=== PATIENT | male | born 1985 | race Caucasian/White ===

== ENCOUNTER → 2020-10-06 | Outpatient (CLI) | payer OTHER ==
[~2020-10-06] MED LIST: CETI10TA74 PO; OXYC-325 PO
== END ==
LOC: EDBD → LAB 11:07 → MERGE 11:07 → UNMERGE 11:07
PROVIDERS: ATTEND Surgery
DX: Z01.812 Encounter for preprocedural laboratory examination (principal); K40.90 Unilateral inguinal hernia, without obstruction or gangrene, not specified as recurrent; Z20.828 Contact with and (suspected) exposure to other viral communicable diseases
CPT/HCPCS: U0003

== ENCOUNTER 2020-10-09 08:20 | Day surgery (SDC) | payer OTHER ==
[~2020-10-09] VITALS: Ht 182.9 cm; Wt 123.0 kg
[~2020-10-09 08:20] MED LIST changes: +ACETAMINOPHEN 500 MG TABLET PO SCH; +HYDROmorphone 2 MG/ML VIAL IV PRN; +MORPHINE SULFATE 2 MG/ML VIAL. IV PRN; +ONDANSETRON PF 4 MG/2 ML VIAL. IV PRN; -OXYC-325 PO; +PROCHLORPERAZINE 10 MG/2 ML VIAL. IV PRN; +ceFAZolin SODIUM 3 GM in IV DEXTROSE 5% 100ML 100 ML IV PRN; +fentaNYL PF VIAL 100 MCG/2 ML VIAL IV PRN
[2020-10-09] MEDS ORDERED: MIDAZOLAM HCL/PF 2 MG/2 ML VIAL. ONE (08:33)
[2020-10-09] MEDS ORDERED: fentaNYL PF VIAL 250 MCG/5 ML VIAL ONE (08:33)
[2020-10-09] MEDS ORDERED: PROPOFOL 10 MG/ML (20ML) VIAL. IV ONE (08:33)
[2020-10-09] MEDS ORDERED: LIDOCAINE 2% PF 5 ML VIAL. ONE (08:34)
[2020-10-09] MEDS ORDERED: ROCURONIUM 50 MG/5 ML VIAL. ONE ×2 (08:34→10:09)
[2020-10-09] MEDS: IV RINGERS,LACTATED 1000ML 1,000 ML IV SCH ×2 (08:55→11:50)
[2020-10-09] MEDS ORDERED: MINERAL OIL for SURGERY 10 ML VIAL. MC ONE (09:17)
[2020-10-09] MEDS ORDERED: BUPIVACAINE-EPI 0.25% 30 ML VIAL KIT. ONE (09:17)
[2020-10-09] MEDS ORDERED: SUCCINYLCHOLINE 200 MG/10 ML VIAL. ONE (09:48)
[2020-10-09] MEDS ORDERED: DEXAMETHASONE SOD PHOS 4 MG/ML VIAL ONE (09:55)
[2020-10-09] MEDS ORDERED: ONDANSETRON PF 4 MG/2 ML VIAL. ONE (09:55)
[2020-10-09] MEDS ORDERED: PHENYLEPHRINE in 0.9% NACL PF 1 MG/10 ML SYRINGE. IV ONE (10:06)
[2020-10-09] MEDS ORDERED: GLYCOPYRROLATE 1 MG/5 ML VIAL. ONE (10:08)
[2020-10-09] MEDS ORDERED: NEOSTIGMINE METHYLSULFATE 5 MG/5 ML SYRINGE. ONE (10:09)
[2020-10-09] MEDS ORDERED: SEVOFLURANE 61 TO 120 MINUTES. IH ONE (10:09)
[2020-10-09] MEDS ORDERED: KETOROLAC 30 MG/ML VIAL. ONE (10:47)
--- NOTE | 2020-10-09 10:47 | PDOC4 ---
Operative Note Operative Note Date: October 092020 at 1045 Preoperative diagnosis: Right inguinal hernia Postoperative diagnosis: Same Procedure: Robotic assisted laparoscopic right inguinal hernia repair with mesh Surgeon: Mango Specimen: None Dictation: Patient is a 35-year-old male complaining of right groin pain with a painful bulge consistent with a right inguinal hernia. Procedure of robotic assisted laparoscopic right inguinal hernia repair with mesh was explained to the patient in detail risk benefits were also discussed including bleeding infection injury to intra-abdominal contents possibly necessitating further or open operations alternatives to this procedure also discussed with the patient who seemed to understand and gave both verbal and written consent to have the procedure performed. Patient was taken to the operating room placed in the supine position general anesthesia was initiated once patient was sleeping intubated his abdomen was prepped and draped usual sterile fashion using ChloraPrep he was placed in low lithotomy positioning and the area around his umbilicus was injected with quarter percent Marcaine with epinephrine incision made 11 blade scalpel and a varies needle was placed within the abdomen creating pneumoperitoneum once this was complete 8 mm da Jae port was placed in the da Jae camera was placed within the abdomen which was inspected noted right inguinal hernia. A millimeter da Jae ports placed in the right midabdomen and an 8 mm da Jae port was placed in the left midabdomen the da Jae robot was brought and docked to all port sites surgeon went to the robotic console using grasper and Endo Vidhya scissors the peritoneum over the right side was then sized and a window was propagated with a inferior flap of peritoneum reducing the hernia sac and contents. A large Bard 3D max mesh for the right side was placed over the hernia defect and the peritoneum was closed over the mesh with a running 2 OV lock absorbable suture. Once this complete the da Jae robot was undocked from all port sites the pneumoperitoneum was reduced all ports removed port sites were all closed with 4 subcuticular Monocryl Mastisol Steri-Strips and island dressings were applied. Patient was awakened and extubated operating room taken to recovery in stable condition all sponge instrument needle counts listed as correct estimated blood loss 5 mL BRAYDEN COSME MD Oct 09, 2020 10:47
--- NOTE | 2020-10-09 10:49 | DISCH ---
DISCHARGE INSTRUCTIONS Condition on Discharge Condition on Discharge: Stable Activity After Discharge Activity Instructions for Disc: Avoid exertion Other activity instructions: No lifting more than 20 pounds for 2 weeks Diet after Discharge Diet after Discharge: Regular Wound Incision Care Other wound/incision instructi: Kristel shower in 24 hours Contacting the DRJuan after DC Call your doctor for: If your condition worsens Follow-Up Follow up with: Dr. Cosme in 2 weeks BRAYDEN COSME MD Oct 09, 2020 10:49
[2020-10-09] MEDS ORDERED: OXYC-325 PO (11:43)
[2020-10-09] MEDS ORDERED: oxyCODONE/APAP 5/325 1 TAB TABLET PO ONE ×2 (11:45)
[2020-10-09 12:16] VITALS: BP 136/65
== END 2020-10-09 13:10 | disposition home or self-care (01) ==
LOC: EDBD → SURG 08:20 → MERGE 10:00 → UNMERGE 10:00 → EDUNIT# 11:15 → SURG 13:10
PROVIDERS: ATTEND Surgery
DX: K40.90 Unilateral inguinal hernia, without obstruction or gangrene, not specified as recurrent (principal); E66.9 Obesity, unspecified; Z79.899 Other long term (current) drug therapy; Z98.890 Other specified postprocedural states; Z88.8 Allergy status to other drugs, medicaments and biological substances; Z68.36 Body mass index [BMI] 36.0-36.9, adult
CPT/HCPCS: 49650; C1781; J1100; J1885; J2370; J2405; J2704; J2710; J3010; J3490; S2900; J0330; J2250